=== PATIENT | male | born 1980 | race Caucasian/White ===

== ENCOUNTER 2017-12-01 22:38 | Inpatient (IN) | payer OTHER, MEDICAID ==
[~2017-12-01] VITALS: Ht 177.8 cm; Wt 62.5 kg
[2017-12-01 22:48] VITALS: BP 84/53
[2017-12-01] MEDS ORDERED: NOREPINEPHRINE 8 MG/250ML KIT 250 ML IV ONE (22:54)
[2017-12-01] MEDS ORDERED: SODIUM BICARBONATE 8.4% INJ 50ML SYRINGE ONE (23:07)
[2017-12-01] MEDS ORDERED: MIDAZOLAM DRIP 50 mg/50mL 50 ML IV ONE (23:14)
[2017-12-01 23:24] LABS: Basophils # (auto) 0 uL; Basophils % (auto) 0.6 % (0.0-2.0); Eosinophils # (auto) 0 uL; Eosinophils % (auto) 0.3 % (0.0-7.0); Hematocrit 46.2 % (41.0-53.0); Hemoglobin 16.1 g/dL (13.5-17.5); Lymphocytes # (auto) 1.6 uL; Mean Corpuscular Hemoglobin 33.8 pg (28.0-32.0); Mean Corpuscular Hgb Conc. 34.8 g/dL (32.0-36.0); Monocytes # (auto) 0.3 uL; Monocytes % (auto) 3.9 % (0.0-12.0); Neutrophils # (auto) 4.7 uL; Neutrophils % (auto) 71.2 % (37.0-80.0); Nucleated Red Blood Cells % 0.2 %; Platelet Count (auto) 166 10^3/uL (140-450); Red Blood Cells 4.76 10^6/uL (4.5-5.90); Red Cell Distribution Width 14.2 % (11.8-14.3); White Blood Cell 6.6 10^3/uL (4.4-10.8)
[2017-12-01 23:30] VITALS: BP 84/53
[2017-12-01 23:36] LABS: Urine Bacteria FEW /hpf (None Seen); Urine Blood Negative /uL (Negative); Urine Specific Gravity 1.007 (1.001-1.035); Urine Sperm PRESENT /hpf (None Seen); Urine WBC 1 /hpf (0 - 3)
[2017-12-01 23:39] LABS: Alanine Aminotransferase 116 U/L (16-61); Albumin 3.4 g/dL (3.4-5.0); Anion Gap 21 (5-15); Aspartate Aminotransferase 332 U/L (15-37); BUN/Creatinine Ratio 5.3; Blood Alcohol < 3.0 mg/dL (0-5); Blood Urea Nitrogen 9 mg/dL (7-18); Calcium 8.3 mg/dL (8.5-10.1); Carbon Dioxide 21 mmol/L (21-32); Chloride 90 mmol/L (98-107); GFR African American 59 mL/min; GFR Non-African American 49 mL/min; Glucose 350 mg/dL (74-106); Magnesium 2.1 mg/dL (1.6-2.6); Salicylate < 1.7 mg/dL (2.8-20.0); Sodium 132 mmol/L (136-145)
[2017-12-01 23:43] LABS: Acetaminophen < 2.0 ug/mL (10-30); Alkaline Phosphatase 95 U/L (45-117); Bilirubin, Total 2.1 mg/dL (0.2-1.0); Potassium 2.5 mmol/L (3.5-5.1); Total Protein 7.7 g/dL (6.4-8.2)
[2017-12-01] MEDS ORDERED: POTASSIUM EFFERVESENT TAB 25 MEQ GT ONE (23:45)
[2017-12-01] MEDS ORDERED: MIDAZOLAM DRIP 50 mg/50mL 50 ML IV SCH (23:48)
[2017-12-01 23:49] LABS: Alcohol, Urine < 3.0 mg/dL (0-5); Amphetamine Screen, Urine NEGATIVE (NEGATIVE); Barbiturate Scree,Urine POSITIVE (NEGATIVE); Benzodiazephine Screen, Urine NEGATIVE (NEGATIVE); Cannabinoid Screen, Urine POSITIVE (NEGATIVE); Cocaine Screen, Urine NEGATIVE (NEGATIVE); Opiate Scree,Urine NEGATIVE (NEGATIVE); Phencyclidine Screen, Urine NEGATIVE (NEGATIVE)
[2017-12-02] VITALS (69 sets, daily range): BP systolic 81–143; BP diastolic 49–85
[2017-12-02] MEDS ORDERED: NOREPINEPHRINE 8 MG/250ML KIT 250 ML IV SCH
[2017-12-02] MEDS ORDERED: SODIUM CHLORIDE 0.9% 2,000 ML IV ONE
[2017-12-02] MEDS ORDERED: SODIUM BICARBONATE 8.4 % INJ 50ML VIAL IV ONE (01:00)
[2017-12-02] MEDS ORDERED: fentaNYL Drip 2500mCg/250mlNS 250 ML IV ONE (01:09)
[2017-12-02] MEDS: fentaNYL Drip 2500mCg/250mlNS 250 ML IV SCH (01:24)
[2017-12-02] MEDS: POTASSIUM CHL 20MEQ/100ML 100 ML IV SCH ×4 (03:33→16:30)
[2017-12-02] MEDS ORDERED: THIAMINE INJ 100 MG, MULTIPLE VITAMIN 10 ML, FOLIC ACID 1 MG, MAGNESIUM SULF SDV 50% 8 ... IV ONE ×5 (04:30)
[2017-12-02] MEDS ORDERED: ACETAMINOPHEN 325 MG TAB PO ONE (06:00)
[2017-12-02] MEDS ORDERED: LORazepam 2MG/ML-1ML VIAL IV ONE (06:00)
[2017-12-02] MEDS ORDERED: ACETAMINOPHEN 325 MG TAB PO PRN (06:45)
[2017-12-02] MEDS ORDERED: MORPHINE SULFATE 4 MG/ML SYR/VIAL IV PRN (06:45)
[2017-12-02] MEDS ORDERED: NITROGLYCERIN 0.4 MG SL TAB SL PRN (06:45)
[2017-12-02] MEDS ORDERED: SODIUM CHLORIDE 0.9% 500 ML IV ONE (06:45)
[2017-12-02] MEDS ORDERED: ONDANSETRON HCL 4 MG/2 ML VIAL IV PRN (06:45)
[2017-12-02] MEDS ORDERED: PROPOFOL 10 MG/ML 20 ML IV ONE (07:30)
[2017-12-02] MEDS ORDERED: LEVETIRACETAM INJ 1,000 MG in D5W 5% 100 ML IV ONE (07:30)
[2017-12-02] MEDS ORDERED: PROPOFOL 100 ML IV ONE (07:35)
[2017-12-02] MEDS ORDERED: SODIUM CHLORIDE 0.9% 1,000 ML IV SCH (07:45)
[2017-12-02] MEDS: PROPOFOL 100 ML IV SCH ×2 (07:47→22:13)
[2017-12-02] MEDS: MIDAZOLAM DRIP 50 mg/50mL 50 ML IV SCH ×4 (07:47→22:14)
[2017-12-02] MEDS ORDERED: SPIRONOLACTONE 25 MG TAB PO ONE (09:15)
[2017-12-02] MEDS ORDERED: PANTOPRAZOLE 40 MG/10 ML VIAL IV SCH (10:00)
[2017-12-02] MEDS ORDERED: ENOXAPARIN SOD 40 MG/0.4 ML SYRINGE SC SCH (10:00)
[2017-12-02] MEDS ORDERED: ASPirin 81 mg TAB PO SCH (10:00)
[2017-12-02 10:41] LABS: Basophils # (auto) 0.1 uL; Basophils % (auto) 0.8 % (0.0-2.0); Eosinophils # (auto) 0 uL; Eosinophils % (auto) 0.1 % (0.0-7.0); Hemoglobin 13.6 g/dL (13.5-17.5); Lymphocytes # (auto) 0.5 uL; Lymphocytes % (auto) 4.2 % (10.0-50.0); Mean Corpuscular Hemoglobin 33.2 pg (28.0-32.0); Mean Corpuscular Volume 97.6 fL (80.0-100.0); Monocytes # (auto) 0.5 uL; Monocytes % (auto) 4.7 % (0.0-12.0); Neutrophils % (auto) 90.2 % (37.0-80.0); Nucleated Red Blood Cells % 0.1 %; Platelet Count (auto) 118 10^3/uL (140-450); Red Cell Distribution Width 14.3 % (11.8-14.3); White Blood Cell 11.1 10^3/uL (4.4-10.8)
[2017-12-02 10:59] LABS: Anion Gap 11 (5-15); BUN/Creatinine Ratio 7.5; Blood Urea Nitrogen 6 mg/dL (7-18); Calcium 6.5 mg/dL (8.5-10.1); Carbon Dioxide 20 mmol/L (21-32); Chloride 109 mmol/L (98-107); GFR African American 141 mL/min; GFR Non-African American 116 mL/min; Glucose 96 mg/dL (74-106); Lactic Acid w/Reflex 2.4 mmol/L (0.4-2.0); Potassium 3.2 mmol/L (3.5-5.1); Sodium 140 mmol/L (136-145)
[2017-12-02 13:17] LABS: Albumin 2.9 g/dL (3.4-5.0)
[2017-12-02 13:18] LABS: Alanine Aminotransferase 88 U/L (16-61); Aspartate Aminotransferase 236 U/L (15-37); Bilirubin, Total 1.1 mg/dL (0.2-1.0); Total Protein 6.4 g/dL (6.4-8.2)
[2017-12-02] MEDS: SODIUM CHLORIDE 0.9% 1,000 ML IV SCH ×2 (13:30→17:55)
[2017-12-02 14:55] LABS: Alkaline Phosphatase 63 U/L (45-117)
[2017-12-02] MEDS ORDERED: POTASSIUM CHL 20MEQ/100ML 100 ML IV ONE (16:15)
[2017-12-02] MEDS ORDERED: VANCOMYCIN PER PHARMACY 0 MG IV SCH (17:30)
[2017-12-02] MEDS ORDERED: VANCOMYCIN 1GM/250ML 250 ML IV ONE (17:30)
[2017-12-02 19:34] LABS: Lactic Acid w/Reflex 2.2 mmol/L (0.4-2.0)
[2017-12-02] MEDS: PHENYLEPHRINE INJ 20 MG in SODIUM CHL 0.9% 250 ML IV SCH (19:50)
[2017-12-02] MEDS ORDERED: PHENYLEPHRINE IV 250 ML IV ONE (19:55)
[2017-12-02] MEDS ORDERED: SODIUM CHLORIDE 0.9% 1,000 ML IV ONE (20:00)
[2017-12-02] MEDS: PANTOPRAZOLE 40 MG/10 ML VIAL IV SCH (22:13)
[2017-12-02] MEDS: SODIUM CHL 0.9% IV SCH (22:13)
[2017-12-02] MEDS: CEFEPIME HYDROCHLORIDE IV SCH (22:13)
[2017-12-03] VITALS (100 sets, daily range): BP systolic 88–154; BP diastolic 45–102
[2017-12-03] MEDS: MIDAZOLAM DRIP 50 mg/50mL 50 ML IV SCH ×3 (01:28→16:31)
[2017-12-03] MEDS: SODIUM CHLORIDE 0.9% 1,000 ML IV SCH ×3 (01:30→17:30)
[2017-12-03 04:09] LABS: Basophils # (auto) 0 uL; Basophils % (auto) 0.3 % (0.0-2.0); Eosinophils # (auto) 0 uL; Eosinophils % (auto) 0.2 % (0.0-7.0); Hematocrit 45.2 % (41.0-53.0); Hemoglobin 15.3 g/dL (13.5-17.5); Lymphocytes # (auto) 1.1 uL; Lymphocytes % (auto) 8.1 % (10.0-50.0); Mean Corpuscular Hemoglobin 33.2 pg (28.0-32.0); Mean Corpuscular Hgb Conc. 33.9 g/dL (32.0-36.0); Mean Corpuscular Volume 98.1 fL (80.0-100.0); Monocytes # (auto) 0.6 uL; Monocytes % (auto) 4.3 % (0.0-12.0); Neutrophils # (auto) 11.4 uL; Neutrophils % (auto) 87.1 % (37.0-80.0); Platelet Count (auto) 77 10^3/uL (140-450); Red Blood Cells 4.61 10^6/uL (4.5-5.90); Red Cell Distribution Width 14.4 % (11.8-14.3); White Blood Cell 13.1 10^3/uL (4.4-10.8)
[2017-12-03] MEDS: PHENYLEPHRINE INJ 20 MG in SODIUM CHL 0.9% 250 ML IV SCH ×3 (04:10→16:32)
[2017-12-03 04:32] LABS: Potassium 3.1 mmol/L (3.5-5.1)
[2017-12-03 04:35] LABS: BUN/Creatinine Ratio 5.3
[2017-12-03 04:36] LABS: Albumin 2.2 g/dL (3.4-5.0); Calcium 6.7 mg/dL (8.5-10.1); Total Protein 5.7 g/dL (6.4-8.2)
[2017-12-03] MEDS: fentaNYL Drip 2500mCg/250mlNS 250 ML IV SCH ×2 (05:23→16:31)
[2017-12-03] MEDS: PROPOFOL 100 ML IV SCH ×2 (05:23→22:33)
[2017-12-03] MEDS: VANCOMYCIN 1,250 MG in D5W 5% 250 ML IV SCH ×2 (05:48→18:18)
[2017-12-03] MEDS ORDERED: ACETAMINOPHEN 650 mg PER 20 mL UD ONE (08:03)
[2017-12-03] MEDS: ACETAMINOPHEN 650 mg PER 20 mL UD GT PRN ×3 (08:24→23:08)
[2017-12-03] MEDS: CEFEPIME HYDROCHLORIDE IV SCH ×2 (10:46→22:00)
[2017-12-03] MEDS: SODIUM CHL 0.9% IV SCH ×2 (10:46→22:00)
[2017-12-03] MEDS: PANTOPRAZOLE 40 MG/10 ML VIAL IV SCH ×2 (10:46→22:00)
[2017-12-03] MEDS: THIAMINE INJ 100 MG, MULTIPLE VITAMIN 10 ML, FOLIC ACID 1 MG, MAGNESIUM SULF SDV 50% 8 ... IV SCH ×5 (14:00)
[2017-12-03] MEDS: POTASSIUM CHL 20MEQ/100ML 100 ML IV SCH ×2 (14:58→16:40)
[2017-12-03 15:00] LABS: INR 1.2 (0.9-1.15); Partial Thromboplastin Time 34.7 sec (23.78-33.04); Prothrombin Time 12.7 sec (9.27-12.13)
[2017-12-04] VITALS (105 sets, daily range): BP systolic 108–146; BP diastolic 40–81
[2017-12-04] MEDS: SODIUM CHLORIDE 0.9% 1,000 ML IV SCH ×3 (01:30→17:30)
[2017-12-04 03:50] LABS: Basophils # (auto) 0 uL; Basophils % (auto) 0.3 % (0.0-2.0); Eosinophils # (auto) 0.1 uL; Eosinophils % (auto) 0.6 % (0.0-7.0); Hematocrit 43.3 % (41.0-53.0); Hemoglobin 14.8 g/dL (13.5-17.5); Lymphocytes % (auto) 6.6 % (10.0-50.0); Mean Corpuscular Hemoglobin 33.7 pg (28.0-32.0); Mean Corpuscular Hgb Conc. 34.3 g/dL (32.0-36.0); Mean Corpuscular Volume 98.2 fL (80.0-100.0); Monocytes # (auto) 0.9 uL; Monocytes % (auto) 6.2 % (0.0-12.0); Neutrophils # (auto) 13.1 uL; Neutrophils % (auto) 86.3 % (37.0-80.0); Platelet Count (auto) 92 10^3/uL (140-450); Red Blood Cells 4.41 10^6/uL (4.5-5.90); Red Cell Distribution Width 13.8 % (11.8-14.3); White Blood Cell 15.1 10^3/uL (4.4-10.8)
[2017-12-04 04:11] LABS: Alanine Aminotransferase 45 U/L (16-61); Albumin 2.1 g/dL (3.4-5.0); Anion Gap 10 (5-15); Aspartate Aminotransferase 103 U/L (15-37); BUN/Creatinine Ratio 4.2; Blood Urea Nitrogen 3 mg/dL (7-18); Calcium 7.4 mg/dL (8.5-10.1); Carbon Dioxide 24 mmol/L (21-32); Chloride 104 mmol/L (98-107); GFR African American 161 mL/min; GFR Non-African American 133 mL/min; Glucose 78 mg/dL (74-106); Potassium 3.8 mmol/L (3.5-5.1); Sodium 138 mmol/L (136-145)
[2017-12-04 04:13] LABS: Alkaline Phosphatase 63 U/L (45-117); Bilirubin, Total 0.7 mg/dL (0.2-1.0); Total Protein 6.2 g/dL (6.4-8.2)
[2017-12-04] MEDS: PHENYLEPHRINE INJ 20 MG in SODIUM CHL 0.9% 250 ML IV SCH ×2 (04:34→07:16)
[2017-12-04] MEDS: fentaNYL Drip 2500mCg/250mlNS 250 ML IV SCH ×2 (04:46→18:46)
[2017-12-04] MEDS: PROPOFOL 100 ML IV SCH ×3 (04:46→21:54)
[2017-12-04] MEDS: VANCOMYCIN 1,250 MG in D5W 5% 250 ML IV SCH ×2 (04:46→18:45)
[2017-12-04] MEDS: ACETAMINOPHEN 650 mg PER 20 mL UD GT PRN ×2 (04:47→13:59)
[2017-12-04] MEDS: MIDAZOLAM DRIP 50 mg/50mL 50 ML IV SCH (06:40)
[2017-12-04] MEDS: PANTOPRAZOLE 40 MG/10 ML VIAL IV SCH ×2 (11:55→21:54)
[2017-12-04] MEDS: CEFEPIME HYDROCHLORIDE IV SCH ×2 (11:55→21:55)
[2017-12-04] MEDS: SODIUM CHL 0.9% IV SCH ×2 (11:55→21:55)
[2017-12-04] MEDS: THIAMINE INJ 100 MG, MULTIPLE VITAMIN 10 ML, FOLIC ACID 1 MG, MAGNESIUM SULF SDV 50% 8 ... IV SCH ×5 (14:30)
[2017-12-05] VITALS (109 sets, daily range): BP systolic 90–155; BP diastolic 43–174
[2017-12-05] MEDS: VANCOMYCIN 1,250 MG in D5W 5% 250 ML IV SCH ×3 (01:28→18:25)
[2017-12-05] MEDS: PROPOFOL 100 ML IV SCH ×2 (01:29→09:51)
[2017-12-05] MEDS: fentaNYL Drip 2500mCg/250mlNS 250 ML IV SCH ×2 (03:48→09:51)
[2017-12-05 04:00] LABS: Basophils # (auto) 0 uL; Eosinophils # (auto) 0.1 uL; Hemoglobin 12.8 g/dL (13.5-17.5); Mean Corpuscular Hgb Conc. 34.9 g/dL (32.0-36.0); Monocytes # (auto) 0.7 uL; Neutrophils # (auto) 7.3 uL; Neutrophils % (auto) 84.4 % (37.0-80.0); White Blood Cell 8.7 10^3/uL (4.4-10.8)
[2017-12-05 04:06] LABS: Basophils % (auto) 0.1 % (0.0-2.0); Eosinophils % (auto) 0.9 % (0.0-7.0); Hematocrit 36.7 % (41.0-53.0); Lymphocytes # (auto) 0.5 uL; Lymphocytes % (auto) 6.3 % (10.0-50.0); Mean Corpuscular Volume 97.6 fL (80.0-100.0); Monocytes % (auto) 8.3 % (0.0-12.0); Nucleated Red Blood Cells % 0.1 %; Red Blood Cells 3.76 10^6/uL (4.5-5.90); Red Cell Distribution Width 13.8 % (11.8-14.3)
[2017-12-05 04:09] LABS: Platelet Count (auto) 83 10^3/uL (140-450)
[2017-12-05 04:25] LABS: Potassium 3.2 mmol/L (3.5-5.1)
[2017-12-05 04:29] LABS: BUN/Creatinine Ratio 5.7; Calcium 7.4 mg/dL (8.5-10.1)
[2017-12-05] MEDS: CEFEPIME HYDROCHLORIDE IV SCH ×2 (09:49→21:59)
[2017-12-05] MEDS: SODIUM CHL 0.9% IV SCH ×2 (09:49→21:59)
[2017-12-05] MEDS: MIDAZOLAM DRIP 50 mg/50mL 50 ML IV SCH (09:49)
[2017-12-05] MEDS: PHENYLEPHRINE INJ 20 MG in SODIUM CHL 0.9% 250 ML IV SCH ×4 (09:49→22:50)
[2017-12-05] MEDS: PANTOPRAZOLE 40 MG/10 ML VIAL IV SCH ×2 (09:52→21:58)
[2017-12-05] MEDS: ACETAMINOPHEN 650 mg PER 20 mL UD GT PRN ×2 (09:54→18:45)
[2017-12-05] MEDS: THIAMINE INJ 100 MG, MULTIPLE VITAMIN 10 ML, FOLIC ACID 1 MG, MAGNESIUM SULF SDV 50% 8 ... IV SCH ×5 (12:30)
[2017-12-05] MEDS ORDERED: LIDOCAINE 1% (LOCAL ANESTH.) PF 5ml SDV ID ONE (16:00)
[2017-12-05] MEDS: SODIUM CHLORIDE 0.9% 1,000 ML IV SCH ×3 (16:29→17:30)
[2017-12-05] MEDS: POTASSIUM CHL 20MEQ/100ML 100 ML IV SCH ×2 (20:41→22:47)
[2017-12-05] MEDS: SODIUM CHLOR 0.9% PF (SALINE LOCK) 10ML VIAL/SYR IV SCH (21:58)
[2017-12-06] VITALS (99 sets, daily range): BP systolic 92–145; BP diastolic 38–105
[2017-12-06] MEDS: SODIUM CHLORIDE 0.9% 1,000 ML IV SCH ×3 (01:30→17:20)
[2017-12-06] MEDS: VANCOMYCIN 1,250 MG in D5W 5% 250 ML IV SCH ×3 (02:02→18:11)
[2017-12-06] MEDS: PROPOFOL 100 ML IV SCH ×4 (06:29→23:55)
[2017-12-06] MEDS: MIDAZOLAM DRIP 50 mg/50mL 50 ML IV SCH ×5 (06:40→20:00)
[2017-12-06] MEDS: PHENYLEPHRINE INJ 20 MG in SODIUM CHL 0.9% 250 ML IV SCH ×3 (06:54→23:50)
[2017-12-06] MEDS: LORazepam 2MG/ML-1ML VIAL IV PRN ×4 (07:52→17:44)
[2017-12-06] MEDS: fentaNYL Drip 2500mCg/250mlNS 250 ML IV SCH (08:14)
[2017-12-06 09:04] LABS: Hematocrit 32.1 % (41.0-53.0); Hemoglobin 11.3 g/dL (13.5-17.5); Mean Corpuscular Hemoglobin 33.6 pg (28.0-32.0); Mean Corpuscular Hgb Conc. 35.1 g/dL (32.0-36.0); Mean Corpuscular Volume 95.9 fL (80.0-100.0); Platelet Count (auto) 107 10^3/uL (140-450); Red Blood Cells 3.35 10^6/uL (4.5-5.90); Red Cell Distribution Width 14.2 % (11.8-14.3); White Blood Cell 5.5 10^3/uL (4.4-10.8)
[2017-12-06 09:07] LABS: Basophils % (manual) 0 (0.0-2.0); Blast Cells 0; Myelocytes % 0; Promyelocytes % 0; Reactive Lymphocytes 0
[2017-12-06 09:09] LABS: Alanine Aminotransferase 27 U/L (16-61); Albumin 1.7 g/dL (3.4-5.0); Anion Gap 9 (5-15); Blood Urea Nitrogen < 1 mg/dL (7-18); Calcium 7.6 mg/dL (8.5-10.1); Carbon Dioxide 28 mmol/L (21-32); Chloride 97 mmol/L (98-107); Glucose 114 mg/dL (74-106); Sodium 134 mmol/L (136-145)
[2017-12-06 09:13] LABS: Alkaline Phosphatase 50 U/L (45-117); Aspartate Aminotransferase 57 U/L (15-37); BUN/Creatinine Ratio 2.2; Bilirubin, Total 0.6 mg/dL (0.2-1.0); GFR African American 266 mL/min; GFR Non-African American 220 mL/min; Total Protein 5.8 g/dL (6.4-8.2)
[2017-12-06 09:15] LABS: Potassium 2.5 mmol/L (3.5-5.1)
[2017-12-06 10:03] LABS: Band Neutrophils % (manual) 6; Eosinophils % (manual) 3 (0-7); Lymphocytes % (manual) 7 (10.0-50.0); Metamyelocytes % 2; Monocytes % (manual) 12 (0-12)
[2017-12-06] MEDS: CEFEPIME HYDROCHLORIDE IV SCH ×2 (10:10→21:44)
[2017-12-06] MEDS: SODIUM CHL 0.9% IV SCH ×2 (10:10→21:44)
[2017-12-06] MEDS: SODIUM CHLOR 0.9% PF (SALINE LOCK) 10ML VIAL/SYR IV SCH ×2 (10:11→21:44)
[2017-12-06] MEDS: PANTOPRAZOLE 40 MG/10 ML VIAL IV SCH ×2 (10:11→21:44)
[2017-12-06] MEDS: ACETAMINOPHEN 650 mg PER 20 mL UD GT PRN ×2 (13:39→20:49)
[2017-12-06] MEDS ORDERED: POTASSIUM CHL 20MEQ/100ML 300 ML IV ONE (16:13)
[2017-12-06] MEDS: POTASSIUM CHL 20MEQ/100ML 100 ML IV SCH ×3 (16:15→18:31)
[2017-12-06] MEDS: THIAMINE INJ 100 MG, MULTIPLE VITAMIN 10 ML, FOLIC ACID 1 MG, MAGNESIUM SULF SDV 50% 8 ... IV SCH ×5 (17:23)
[2017-12-06] MEDS ORDERED: MEPERIDINE HCL (25 MG/ML) 1ML VIAL IV PRN (21:00)
[2017-12-06] MEDS ORDERED: MEPERIDINE HCL (25 MG/ML) 1ML VIAL ONE (21:00)
[2017-12-07] VITALS (104 sets, daily range): BP systolic 85–130; BP diastolic 38–76
[2017-12-07] MEDS: MIDAZOLAM DRIP 50 mg/50mL 50 ML IV SCH ×6 (00:11→22:30)
[2017-12-07] MEDS: VANCOMYCIN 1,250 MG in D5W 5% 250 ML IV SCH ×2 (02:00→10:48)
[2017-12-07] MEDS: SODIUM CHLORIDE 0.9% 1,000 ML IV SCH ×3 (02:30→13:01)
[2017-12-07] MEDS: fentaNYL Drip 2500mCg/250mlNS 250 ML IV SCH ×2 (02:31→16:54)
[2017-12-07 04:21] LABS: Basophils # (auto) 0 uL; Eosinophils # (auto) 0.1 uL; Hematocrit 31.8 % (41.0-53.0); Lymphocytes # (auto) 0.4 uL; Red Blood Cells 3.33 10^6/uL (4.5-5.90)
[2017-12-07 04:24] LABS: Basophils % (auto) 0.4 % (0.0-2.0); Eosinophils % (auto) 1.1 % (0.0-7.0); Hemoglobin 11.5 g/dL (13.5-17.5); Lymphocytes % (auto) 5.8 % (10.0-50.0); Mean Corpuscular Hemoglobin 34.4 pg (28.0-32.0); Mean Corpuscular Hgb Conc. 36.1 g/dL (32.0-36.0); Mean Corpuscular Volume 95.3 fL (80.0-100.0); Neutrophils # (auto) 4.8 uL; Neutrophils % (auto) 76.7 % (37.0-80.0); Platelet Count (auto) 135 10^3/uL (140-450); Red Cell Distribution Width 14.4 % (11.8-14.3); White Blood Cell 6.3 10^3/uL (4.4-10.8)
[2017-12-07 04:36] LABS: Albumin 1.5 g/dL (3.4-5.0); Calcium 7.5 mg/dL (8.5-10.1); Magnesium 1.9 mg/dL (1.6-2.6)
[2017-12-07 04:43] LABS: BUN/Creatinine Ratio 5.7; Bilirubin, Total 0.7 mg/dL (0.2-1.0); Total Protein 5.2 g/dL (6.4-8.2)
[2017-12-07 04:47] LABS: Potassium 2.7 mmol/L (3.5-5.1)
[2017-12-07] MEDS ORDERED: POTASSIUM CHL 20MEQ/100ML 100 ML IV ONE (05:41)
[2017-12-07] MEDS: POTASSIUM CHL 20MEQ/100ML 100 ML IV SCH ×6 (05:43→23:30)
[2017-12-07] MEDS: MEPERIDINE HCL (25 MG/ML) 1ML VIAL IV PRN ×3 (06:37→22:48)
[2017-12-07] MEDS: PHENYLEPHRINE INJ 20 MG in SODIUM CHL 0.9% 250 ML IV SCH ×2 (08:10→16:30)
[2017-12-07] MEDS: PANTOPRAZOLE 40 MG/10 ML VIAL IV SCH ×2 (10:00→21:53)
[2017-12-07] MEDS: SODIUM CHLOR 0.9% PF (SALINE LOCK) 10ML VIAL/SYR IV SCH ×2 (10:32→21:53)
[2017-12-07] MEDS: PROPOFOL 100 ML IV SCH ×2 (10:48→21:53)
[2017-12-07] MEDS: SODIUM CHL 0.9% IV SCH ×2 (12:12→21:52)
[2017-12-07] MEDS: CEFEPIME HYDROCHLORIDE IV SCH ×2 (12:12→21:52)
[2017-12-07] MEDS: THIAMINE INJ 100 MG, MULTIPLE VITAMIN 10 ML, FOLIC ACID 1 MG, MAGNESIUM SULF SDV 50% 8 ... IV SCH ×5 (13:23)
[2017-12-07] MEDS: ACETAMINOPHEN 650 mg PER 20 mL UD GT PRN (13:59)
[2017-12-07] MEDS: DOXYCYCLINE 100MG/250ML 250 ML IV SCH (18:00)
[2017-12-08] VITALS (100 sets, daily range): BP systolic 80–146; BP diastolic 29–97
[2017-12-08] MEDS: PHENYLEPHRINE INJ 20 MG in SODIUM CHL 0.9% 250 ML IV SCH ×3 (00:50→13:09)
[2017-12-08] MEDS: SODIUM CHLORIDE 0.9% 1,000 ML IV SCH ×3 (01:43→18:01)
[2017-12-08] MEDS: MEPERIDINE HCL (25 MG/ML) 1ML VIAL IV PRN ×4 (02:47→21:56)
[2017-12-08] MEDS ORDERED: POTASSIUM CHL 20MEQ/100ML 100 ML IV ONE (03:57)
[2017-12-08] MEDS: DOXYCYCLINE 100MG/250ML 250 ML IV SCH ×2 (05:17→17:09)
[2017-12-08] MEDS: MIDAZOLAM DRIP 50 mg/50mL 50 ML IV SCH ×4 (06:20→20:00)
[2017-12-08 07:30] LABS: BUN/Creatinine Ratio 6.3; Calcium 8.1 mg/dL (8.5-10.1); Potassium 3.2 mmol/L (3.5-5.1)
[2017-12-08] MEDS: fentaNYL Drip 2500mCg/250mlNS 250 ML IV SCH ×2 (07:50→20:00)
[2017-12-08] MEDS: ACETAMINOPHEN 650 mg PER 20 mL UD GT PRN ×2 (09:35→18:02)
[2017-12-08] MEDS: LORazepam 2MG/ML-1ML VIAL IV PRN ×4 (09:35→18:23)
[2017-12-08] MEDS: SODIUM CHLOR 0.9% PF (SALINE LOCK) 10ML VIAL/SYR IV SCH ×2 (09:41→21:57)
[2017-12-08] MEDS: PANTOPRAZOLE 40 MG/10 ML VIAL IV SCH ×2 (09:41→21:57)
[2017-12-08] MEDS: CEFEPIME HYDROCHLORIDE IV SCH ×2 (09:42→21:55)
[2017-12-08] MEDS: ENOXAPARIN SOD 40 MG/0.4 ML SYRINGE SC SCH (09:42)
[2017-12-08] MEDS: SODIUM CHL 0.9% IV SCH ×2 (09:42→21:55)
[2017-12-08] MEDS: POTASSIUM CHL 20MEQ/100ML 100 ML IV SCH ×2 (10:51→12:59)
[2017-12-08] MEDS ORDERED: PHENYLEPHRINE IV 250 ML IV ONE (13:00)
[2017-12-08] MEDS: THIAMINE INJ 100 MG, MULTIPLE VITAMIN 10 ML, FOLIC ACID 1 MG, MAGNESIUM SULF SDV 50% 8 ... IV SCH ×5 (13:44)
[2017-12-08] MEDS ORDERED: MORPHINE SULFATE 4 MG/ML SYR/VIAL IV PRN (19:15)
[2017-12-08] MEDS: PROPOFOL 100 ML IV SCH (20:15)
[2017-12-09] VITALS (107 sets, daily range): BP systolic 93–156; BP diastolic 41–111
[2017-12-09] MEDS: MIDAZOLAM DRIP 50 mg/50mL 50 ML IV SCH ×6 (00:19→23:16)
[2017-12-09] MEDS: PROPOFOL 100 ML IV SCH ×5 (00:19→21:06)
[2017-12-09] MEDS: PHENYLEPHRINE INJ 20 MG in SODIUM CHL 0.9% 250 ML IV SCH ×3 (00:19→18:30)
[2017-12-09] MEDS: SODIUM CHLORIDE 0.9% 1,000 ML IV SCH ×3 (00:19→17:07)
[2017-12-09 03:41] LABS: Hematocrit 31.8 % (41.0-53.0); Hemoglobin 10.8 g/dL (13.5-17.5); Mean Corpuscular Hemoglobin 32.6 pg (28.0-32.0); Mean Corpuscular Volume 95.7 fL (80.0-100.0); Platelet Count (auto) 334 10^3/uL (140-450); Red Blood Cells 3.33 10^6/uL (4.5-5.90); White Blood Cell 11.2 10^3/uL (4.4-10.8)
[2017-12-09 03:44] LABS: Basophils % (manual) 0 (0.0-2.0); Blast Cells 0; Eosinophils % (manual) 0 (0-7); Metamyelocytes % 0; Myelocytes % 0; Promyelocytes % 0; Reactive Lymphocytes 0
[2017-12-09 04:02] LABS: Calcium 7.5 mg/dL (8.5-10.1); Magnesium 1.9 mg/dL (1.6-2.6)
[2017-12-09 04:05] LABS: BUN/Creatinine Ratio 10.3
[2017-12-09 05:17] LABS: Potassium 2.9 mmol/L (3.5-5.1)
[2017-12-09] MEDS: DOXYCYCLINE 100MG/250ML 250 ML IV SCH ×3 (05:19→20:30)
[2017-12-09] MEDS ORDERED: POTASSIUM EFFERVESENT TAB 25 MEQ GT ONE (06:00)
[2017-12-09 06:03] LABS: Band Neutrophils % (manual) 6; Lymphocytes % (manual) 3 (10.0-50.0); Monocytes % (manual) 3 (0-12)
[2017-12-09] MEDS: POTASSIUM CHL 20MEQ/100ML 100 ML IV SCH ×2 (07:01→09:03)
[2017-12-09] MEDS: fentaNYL Drip 2500mCg/250mlNS 250 ML IV SCH ×2 (08:56→21:21)
[2017-12-09] MEDS: SODIUM CHL 0.9% IV SCH ×2 (11:41→22:05)
[2017-12-09] MEDS: CEFEPIME HYDROCHLORIDE IV SCH ×2 (11:41→22:05)
[2017-12-09] MEDS: SODIUM CHLOR 0.9% PF (SALINE LOCK) 10ML VIAL/SYR IV SCH ×2 (11:42→22:05)
[2017-12-09] MEDS: ENOXAPARIN SOD 40 MG/0.4 ML SYRINGE SC SCH (11:42)
[2017-12-09] MEDS: PANTOPRAZOLE 40 MG/10 ML VIAL IV SCH ×2 (11:50→22:05)
[2017-12-09] MEDS: THIAMINE INJ 100 MG, MULTIPLE VITAMIN 10 ML, FOLIC ACID 1 MG, MAGNESIUM SULF SDV 50% 8 ... IV SCH ×5 (11:51)
[2017-12-09] MEDS: MEPERIDINE HCL (25 MG/ML) 1ML VIAL IV PRN (21:15)
[2017-12-09] MEDS: LORazepam 2MG/ML-1ML VIAL IV PRN (23:18)
[2017-12-09] MEDS: METOPROLOL TARTRATE 1MG/1ML-5ML VIAL IV PRN (23:43)
[2017-12-10] VITALS (108 sets, daily range): BP systolic 102–156; BP diastolic 54–113
[2017-12-10] MEDS: PROPOFOL 100 ML IV SCH ×4 (00:57→21:50)
[2017-12-10] MEDS: ACETAMINOPHEN 650 mg PER 20 mL UD GT PRN (01:12)
[2017-12-10] MEDS: PHENYLEPHRINE INJ 20 MG in SODIUM CHL 0.9% 250 ML IV SCH ×3 (02:50→19:30)
[2017-12-10] MEDS: MIDAZOLAM DRIP 50 mg/50mL 50 ML IV SCH ×5 (03:49→21:30)
[2017-12-10 06:01] LABS: Hematocrit 33.3 % (41.0-53.0); Hemoglobin 11.7 g/dL (13.5-17.5); Mean Corpuscular Hemoglobin 33.5 pg (28.0-32.0); Mean Corpuscular Hgb Conc. 35.2 g/dL (32.0-36.0); Mean Corpuscular Volume 95.3 fL (80.0-100.0); Platelet Count (auto) 409 10^3/uL (140-450); Red Blood Cells 3.49 10^6/uL (4.5-5.90); Red Cell Distribution Width 15.2 % (11.8-14.3); White Blood Cell 11.7 10^3/uL (4.4-10.8)
[2017-12-10 06:05] LABS: Basophils % (manual) 0 (0.0-2.0); Blast Cells 0; Eosinophils % (manual) 0 (0-7); Monocytes % (manual) 0 (0-12); Promyelocytes % 0; Reactive Lymphocytes 0
[2017-12-10 06:17] LABS: Calcium 8.3 mg/dL (8.5-10.1); Magnesium 1.9 mg/dL (1.6-2.6); Potassium 3.7 mmol/L (3.5-5.1)
[2017-12-10 06:19] LABS: BUN/Creatinine Ratio 6.5; Phosphorus 3.3 mg/dL (2.5-4.90)
[2017-12-10 07:03] LABS: Band Neutrophils % (manual) 1; Lymphocytes % (manual) 4 (10.0-50.0); Metamyelocytes % 1; Myelocytes % 2
[2017-12-10] MEDS ORDERED: POTASSIUM PHOSPHATE 22 MEQ in SODIUM CHL 0.9% 100 ML IV ONE (07:45)
[2017-12-10] MEDS: SODIUM CHLORIDE 0.9% 1,000 ML IV SCH ×3 (08:41→17:30)
[2017-12-10] MEDS: MEPERIDINE HCL (25 MG/ML) 1ML VIAL IV PRN ×3 (08:42→20:13)
[2017-12-10] MEDS: CEFEPIME HYDROCHLORIDE IV SCH ×2 (09:51→22:00)
[2017-12-10] MEDS: PANTOPRAZOLE 40 MG/10 ML VIAL IV SCH ×2 (09:51→22:00)
[2017-12-10] MEDS: SODIUM CHL 0.9% IV SCH ×2 (09:51→22:00)
[2017-12-10] MEDS: ENOXAPARIN SOD 40 MG/0.4 ML SYRINGE SC SCH (09:52)
[2017-12-10] MEDS: SODIUM CHLOR 0.9% PF (SALINE LOCK) 10ML VIAL/SYR IV SCH ×2 (09:52→22:00)
[2017-12-10] MEDS: METOPROLOL TARTRATE 1MG/1ML-5ML VIAL IV PRN ×2 (11:33→23:24)
[2017-12-10] MEDS: fentaNYL Drip 2500mCg/250mlNS 250 ML IV SCH (11:39)
[2017-12-10] MEDS: DOXYCYCLINE 100MG/250ML 250 ML IV SCH (17:18)
[2017-12-10] MEDS: Jevity 1.2 Cal/Fiber 1 Liter GT SCH (17:53)
[2017-12-11] VITALS (104 sets, daily range): BP systolic 110–159; BP diastolic 58–119
[2017-12-11] MEDS: SODIUM CHLORIDE 0.9% 1,000 ML IV SCH ×3 (01:30→13:14)
[2017-12-11] MEDS: fentaNYL Drip 2500mCg/250mlNS 250 ML IV SCH ×2 (01:33→13:51)
[2017-12-11] MEDS: MIDAZOLAM DRIP 50 mg/50mL 50 ML IV SCH ×7 (01:33→22:18)
[2017-12-11] MEDS: PHENYLEPHRINE INJ 20 MG in SODIUM CHL 0.9% 250 ML IV SCH ×3 (03:50→20:30)
[2017-12-11] MEDS: PROPOFOL 100 ML IV SCH ×5 (04:13→22:19)
[2017-12-11] MEDS: METOPROLOL TARTRATE 1MG/1ML-5ML VIAL IV PRN (04:18)
[2017-12-11] MEDS: DOXYCYCLINE 100MG/250ML 250 ML IV SCH ×2 (05:07→17:13)
[2017-12-11 05:09] LABS: Hematocrit 34.8 % (41.0-53.0); Mean Corpuscular Hemoglobin 33.3 pg (28.0-32.0); Mean Corpuscular Hgb Conc. 34.6 g/dL (32.0-36.0); Mean Corpuscular Volume 96.2 fL (80.0-100.0); Red Blood Cells 3.61 10^6/uL (4.5-5.90); Red Cell Distribution Width 15.1 % (11.8-14.3); White Blood Cell 9.9 10^3/uL (4.4-10.8)
[2017-12-11 05:12] LABS: Platelet Count (auto) 485 10^3/uL (140-450)
[2017-12-11 05:13] LABS: Basophils % (manual) 0 (0.0-2.0); Blast Cells 0; Eosinophils % (manual) 0 (0-7); Myelocytes % 0; Promyelocytes % 0; Reactive Lymphocytes 0
[2017-12-11 05:24] LABS: Potassium 3.5 mmol/L (3.5-5.1)
[2017-12-11 05:33] LABS: BUN/Creatinine Ratio 9.1; Calcium 8.3 mg/dL (8.5-10.1); Magnesium 1.8 mg/dL (1.6-2.6)
[2017-12-11 06:38] LABS: Band Neutrophils % (manual) 3; Lymphocytes % (manual) 10 (10.0-50.0); Metamyelocytes % 2; Monocytes % (manual) 8 (0-12)
[2017-12-11] MEDS: MEPERIDINE HCL (25 MG/ML) 1ML VIAL IV PRN ×3 (09:12→18:19)
[2017-12-11] MEDS: LORazepam 2MG/ML-1ML VIAL IV PRN ×3 (09:12→18:19)
[2017-12-11] MEDS: PANTOPRAZOLE 40 MG/10 ML VIAL IV SCH ×2 (10:00→22:17)
[2017-12-11] MEDS: ENOXAPARIN SOD 40 MG/0.4 ML SYRINGE SC SCH (10:00)
[2017-12-11] MEDS: SODIUM CHLOR 0.9% PF (SALINE LOCK) 10ML VIAL/SYR IV SCH ×2 (10:00→22:19)
[2017-12-11] MEDS: CEFEPIME HYDROCHLORIDE IV SCH ×2 (10:00→22:18)
[2017-12-11] MEDS: SODIUM CHL 0.9% IV SCH ×2 (10:00→22:18)
[2017-12-12] VITALS (87 sets, daily range): BP systolic 104–168; BP diastolic 57–103
[2017-12-12] MEDS: fentaNYL Drip 2500mCg/250mlNS 250 ML IV SCH ×2 (01:00→13:20)
[2017-12-12] MEDS: PROPOFOL 100 ML IV SCH ×5 (01:00→20:26)
[2017-12-12] MEDS: SODIUM CHLORIDE 0.9% 1,000 ML IV SCH ×3 (01:30→17:30)
[2017-12-12] MEDS: METOPROLOL TARTRATE 1MG/1ML-5ML VIAL IV PRN ×4 (03:06→22:10)
[2017-12-12] MEDS: MIDAZOLAM DRIP 50 mg/50mL 50 ML IV SCH ×5 (03:07→20:27)
[2017-12-12 04:04] LABS: Mean Corpuscular Volume 97.8 fL (80.0-100.0)
[2017-12-12 04:08] LABS: Hematocrit 25.9 % (41.0-53.0); Hemoglobin 9.6 g/dL (13.5-17.5); Mean Corpuscular Hemoglobin 36.4 pg (28.0-32.0); Mean Corpuscular Hgb Conc. 37.2 g/dL (32.0-36.0); Red Blood Cells 2.65 10^6/uL (4.5-5.90); Red Cell Distribution Width 15.1 % (11.8-14.3); White Blood Cell 8.3 10^3/uL (4.4-10.8)
[2017-12-12 04:11] LABS: Basophils % (manual) 0 (0.0-2.0); Blast Cells 0; Metamyelocytes % 0; Myelocytes % 0; Platelet Count (auto) 305 10^3/uL (140-450); Promyelocytes % 0; Reactive Lymphocytes 0
[2017-12-12 04:26] LABS: Band Neutrophils % (manual) 4; Eosinophils % (manual) 1 (0-7); Lymphocytes % (manual) 6 (10.0-50.0); Monocytes % (manual) 6 (0-12)
[2017-12-12] MEDS: Jevity 1.2 Cal/Fiber 1 Liter GT SCH ×2 (04:48→20:28)
[2017-12-12] MEDS: PHENYLEPHRINE INJ 20 MG in SODIUM CHL 0.9% 250 ML IV SCH ×2 (04:50→13:10)
[2017-12-12] MEDS: DOXYCYCLINE 100MG/250ML 250 ML IV SCH ×2 (04:54→17:30)
[2017-12-12 05:56] LABS: Albumin 1.5 g/dL (3.4-5.0); Anion Gap 6 (5-15); Aspartate Aminotransferase 56 U/L (15-37); Blood Urea Nitrogen 4 mg/dL (7-18); Calcium 7.5 mg/dL (8.5-10.1); Carbon Dioxide 31 mmol/L (21-32); Chloride 100 mmol/L (98-107); GFR African American 313 mL/min; GFR Non-African American 259 mL/min; Glucose 176 mg/dL (74-106); Sodium 137 mmol/L (136-145)
[2017-12-12 06:00] LABS: Alanine Aminotransferase 19 U/L (16-61); Alkaline Phosphatase 71 U/L (45-117); Bilirubin, Total 0.3 mg/dL (0.2-1.0); Total Protein 5.8 g/dL (6.4-8.2)
[2017-12-12] MEDS: SODIUM CHLOR 0.9% PF (SALINE LOCK) 10ML VIAL/SYR IV SCH ×2 (10:00→22:14)
[2017-12-12] MEDS: ENOXAPARIN SOD 40 MG/0.4 ML SYRINGE SC SCH (10:23)
[2017-12-12] MEDS: PANTOPRAZOLE 40 MG/10 ML VIAL IV SCH ×2 (10:24→21:58)
[2017-12-12] MEDS: CEFEPIME HYDROCHLORIDE IV SCH ×2 (10:38→21:58)
[2017-12-12] MEDS: SODIUM CHL 0.9% IV SCH ×2 (10:38→21:58)
[2017-12-12] MEDS: MEPERIDINE HCL (25 MG/ML) 1ML VIAL IV PRN (12:58)
[2017-12-12] MEDS: LORazepam 2MG/ML-1ML VIAL IV PRN (14:16)
[2017-12-12] MEDS ORDERED: MORPHINE SULFATE 4 MG/ML SYR/VIAL IV PRN ×2 (15:15)
[2017-12-12] MEDS ORDERED: MIDAZOLAM DRIP 50 mg/50mL 50 ML IV ONE (15:38)
[2017-12-12] MEDS ORDERED: MIDAZOLAM DRIP 50 mg/50mL 50 ML IV SCH (16:03)
[2017-12-13] VITALS (106 sets, daily range): BP systolic 88–149; BP diastolic 36–112
[2017-12-13] MEDS: MIDAZOLAM DRIP 50 mg/50mL 50 ML IV SCH ×5 (01:24→22:54)
[2017-12-13] MEDS: PROPOFOL 100 ML IV SCH ×4 (01:25→20:39)
[2017-12-13] MEDS: fentaNYL Drip 2500mCg/250mlNS 250 ML IV SCH ×2 (01:30→22:54)
[2017-12-13] MEDS: SODIUM CHLORIDE 0.9% 1,000 ML IV SCH ×3 (01:30→17:30)
[2017-12-13] MEDS: METOPROLOL TARTRATE 1MG/1ML-5ML VIAL IV PRN ×3 (02:30→19:18)
[2017-12-13] MEDS: LORazepam 2MG/ML-1ML VIAL IV PRN (04:09)
[2017-12-13 04:14] LABS: Basophils # (auto) 0.1 uL; Eosinophils # (auto) 0.2 uL; Hemoglobin 10.2 g/dL (13.5-17.5); Lymphocytes # (auto) 0.9 uL; Mean Corpuscular Hemoglobin 35.7 pg (28.0-32.0); Red Blood Cells 2.84 10^6/uL (4.5-5.90); Red Cell Distribution Width 15.4 % (11.8-14.3)
[2017-12-13 04:15] LABS: Basophils % (auto) 0.7 % (0.0-2.0); Hematocrit 27.7 % (41.0-53.0); Lymphocytes % (auto) 9.4 % (10.0-50.0); Mean Corpuscular Hgb Conc. 36.6 g/dL (32.0-36.0); Mean Corpuscular Volume 97.6 fL (80.0-100.0); Monocytes # (auto) 1.2 uL; Monocytes % (auto) 12.5 % (0.0-12.0); Neutrophils % (auto) 75.4 % (37.0-80.0); Nucleated Red Blood Cells % 0.2 %; Platelet Count (auto) 423 10^3/uL (140-450); White Blood Cell 9.3 10^3/uL (4.4-10.8)
[2017-12-13] MEDS: DOXYCYCLINE 100MG/250ML 250 ML IV SCH ×2 (05:07→17:15)
[2017-12-13] MEDS ORDERED: MIDAZOLAM DRIP 50 mg/50mL 50 ML IV SCH (06:40)
[2017-12-13 06:55] LABS: Albumin 1.9 g/dL (3.4-5.0); Calcium 8.7 mg/dL (8.5-10.1)
[2017-12-13 06:58] LABS: BUN/Creatinine Ratio 12.5; Bilirubin, Total 0.3 mg/dL (0.2-1.0); Total Protein 6.8 g/dL (6.4-8.2)
[2017-12-13] MEDS: PHENYLEPHRINE INJ 20 MG in SODIUM CHL 0.9% 250 ML IV SCH ×4 (08:15→16:59)
[2017-12-13] MEDS: CEFEPIME HYDROCHLORIDE IV SCH ×2 (09:55→21:53)
[2017-12-13] MEDS: SODIUM CHL 0.9% IV SCH ×2 (09:55→21:53)
[2017-12-13] MEDS: PANTOPRAZOLE 40 MG/10 ML VIAL IV SCH ×2 (09:56→21:52)
[2017-12-13] MEDS: ENOXAPARIN SOD 40 MG/0.4 ML SYRINGE SC SCH (09:56)
[2017-12-13] MEDS: SODIUM CHLOR 0.9% PF (SALINE LOCK) 10ML VIAL/SYR IV SCH ×2 (10:00→22:00)
[2017-12-13] MEDS: ACETAMINOPHEN 650 mg PER 20 mL UD GT PRN (19:46)
[2017-12-13] MEDS: MEPERIDINE HCL (25 MG/ML) 1ML VIAL IV PRN (19:57)
[2017-12-14] VITALS (91 sets, daily range): BP systolic 86–164; BP diastolic 33–105
[2017-12-14] MEDS: MIDAZOLAM DRIP 50 mg/50mL 50 ML IV SCH ×6 (01:19→20:20)
[2017-12-14] MEDS: SODIUM CHLORIDE 0.9% 1,000 ML IV SCH ×3 (01:30→14:28)
[2017-12-14 04:03] LABS: White Blood Cell 8.3 10^3/uL (4.4-10.8)
[2017-12-14 04:06] LABS: Hematocrit 31.5 % (41.0-53.0); Mean Corpuscular Hgb Conc. 34.4 g/dL (32.0-36.0); Red Cell Distribution Width 15.8 % (11.8-14.3)
[2017-12-14 04:19] LABS: Calcium 8.3 mg/dL (8.5-10.1); Potassium 4.3 mmol/L (3.5-5.1)
[2017-12-14 04:22] LABS: BUN/Creatinine Ratio 18.4
[2017-12-14 04:24] LABS: Platelet Count (auto) 480 10^3/uL (140-450)
[2017-12-14 04:25] LABS: Hemoglobin 10.9 g/dL (13.5-17.5); Red Blood Cells 3.24 10^6/uL (4.5-5.90)
[2017-12-14 04:26] LABS: Basophils % (manual) 0 (0.0-2.0); Blast Cells 0; Myelocytes % 0; Promyelocytes % 0; Reactive Lymphocytes 0
[2017-12-14] MEDS: PROPOFOL 100 ML IV SCH ×4 (04:42→20:19)
[2017-12-14] MEDS: DOXYCYCLINE 100MG/250ML 250 ML IV SCH ×2 (04:43→16:56)
[2017-12-14 04:46] LABS: Band Neutrophils % (manual) 2
[2017-12-14 04:47] LABS: Eosinophils % (manual) 4 (0-7); Lymphocytes % (manual) 20 (10.0-50.0); Metamyelocytes % 2; Monocytes % (manual) 8 (0-12)
[2017-12-14] MEDS: fentaNYL Drip 2500mCg/250mlNS 250 ML IV SCH ×2 (08:57→21:05)
[2017-12-14] MEDS: PHENYLEPHRINE INJ 20 MG in SODIUM CHL 0.9% 250 ML IV SCH ×3 (09:45→23:30)
[2017-12-14] MEDS: PANTOPRAZOLE 40 MG/10 ML VIAL IV SCH ×2 (09:53→21:47)
[2017-12-14] MEDS: ENOXAPARIN SOD 40 MG/0.4 ML SYRINGE SC SCH (09:54)
[2017-12-14] MEDS: SODIUM CHLOR 0.9% PF (SALINE LOCK) 10ML VIAL/SYR IV SCH ×2 (09:54→21:50)
[2017-12-14] MEDS: SODIUM CHL 0.9% IV SCH ×2 (11:13→21:49)
[2017-12-14] MEDS: CEFEPIME HYDROCHLORIDE IV SCH ×2 (11:13→21:49)
[2017-12-14] MEDS: Jevity 1.2 Cal/Fiber 1 Liter GT SCH (11:15)
[2017-12-14] MEDS: MEPERIDINE HCL (25 MG/ML) 1ML VIAL IV PRN ×2 (16:38→23:29)
[2017-12-14] MEDS: METOPROLOL TARTRATE 1MG/1ML-5ML VIAL IV PRN ×2 (17:36→22:26)
[2017-12-14] MEDS: ACETAMINOPHEN 650 mg PER 20 mL UD GT PRN (19:20)
[2017-12-15] VITALS (99 sets, daily range): BP systolic 75–148; BP diastolic 36–101
[2017-12-15] MEDS: SODIUM CHLORIDE 0.9% 1,000 ML IV SCH ×4 (01:45→20:00)
[2017-12-15] MEDS: PROPOFOL 100 ML IV SCH ×4 (02:00→21:55)
[2017-12-15] MEDS: METOPROLOL TARTRATE 1MG/1ML-5ML VIAL IV PRN ×2 (03:10→20:14)
[2017-12-15] MEDS: LORazepam 2MG/ML-1ML VIAL IV PRN ×2 (03:30→20:14)
[2017-12-15 04:59] LABS: Hemoglobin 11.6 g/dL (13.5-17.5); Red Cell Distribution Width 15.3 % (11.8-14.3); White Blood Cell 9.4 10^3/uL (4.4-10.8)
[2017-12-15 05:01] LABS: Hematocrit 33.7 % (41.0-53.0); Mean Corpuscular Hemoglobin 32.7 pg (28.0-32.0); Mean Corpuscular Hgb Conc. 34.4 g/dL (32.0-36.0); Mean Corpuscular Volume 95.3 fL (80.0-100.0); Red Blood Cells 3.54 10^6/uL (4.5-5.90)
[2017-12-15 05:04] LABS: Platelet Count (auto) 486 10^3/uL (140-450)
[2017-12-15 05:05] LABS: Basophils % (manual) 0 (0.0-2.0); Blast Cells 0; Myelocytes % 0; Promyelocytes % 0; Reactive Lymphocytes 0
[2017-12-15] MEDS: DOXYCYCLINE 100MG/250ML 250 ML IV SCH ×2 (05:12→17:16)
[2017-12-15] MEDS: MIDAZOLAM DRIP 50 mg/50mL 50 ML IV SCH ×5 (05:15→22:23)
[2017-12-15 05:17] LABS: Albumin 1.9 g/dL (3.4-5.0); Calcium 8.6 mg/dL (8.5-10.1)
[2017-12-15 05:20] LABS: BUN/Creatinine Ratio 18.2; Bilirubin, Total 0.2 mg/dL (0.2-1.0); Total Protein 6.6 g/dL (6.4-8.2)
[2017-12-15 05:32] LABS: Band Neutrophils % (manual) 2; Eosinophils % (manual) 3 (0-7); Lymphocytes % (manual) 14 (10.0-50.0); Metamyelocytes % 2; Monocytes % (manual) 11 (0-12)
[2017-12-15] MEDS: PHENYLEPHRINE INJ 20 MG in SODIUM CHL 0.9% 250 ML IV SCH ×2 (07:50→16:10)
[2017-12-15] MEDS: MEPERIDINE HCL (25 MG/ML) 1ML VIAL IV PRN ×2 (08:12→17:15)
[2017-12-15] MEDS: fentaNYL Drip 2500mCg/250mlNS 250 ML IV SCH ×2 (08:57→22:24)
[2017-12-15] MEDS: PANTOPRAZOLE 40 MG/10 ML VIAL IV SCH ×2 (10:01→21:53)
[2017-12-15] MEDS: ENOXAPARIN SOD 40 MG/0.4 ML SYRINGE SC SCH (10:01)
[2017-12-15] MEDS: SODIUM CHL 0.9% IV SCH ×2 (10:01→22:08)
[2017-12-15] MEDS: CEFEPIME HYDROCHLORIDE IV SCH ×2 (10:01→22:08)
[2017-12-15] MEDS: SODIUM CHLOR 0.9% PF (SALINE LOCK) 10ML VIAL/SYR IV SCH ×2 (10:02→22:02)
[2017-12-15] MEDS ORDERED: MORPHINE SULFATE 4 MG/ML SYR/VIAL IV PRN ×2 (16:00)
[2017-12-16] VITALS (98 sets, daily range): BP systolic 108–160; BP diastolic 57–98
[2017-12-16] MEDS: MEPERIDINE HCL (25 MG/ML) 1ML VIAL IV PRN ×2 (00:19→04:01)
[2017-12-16] MEDS: METOPROLOL TARTRATE 1MG/1ML-5ML VIAL IV PRN ×5 (02:35→22:43)
[2017-12-16] MEDS: MIDAZOLAM DRIP 50 mg/50mL 50 ML IV SCH ×3 (02:39→22:00)
[2017-12-16] MEDS: SODIUM CHLORIDE 0.9% 1,000 ML IV SCH ×3 (04:30→17:30)
[2017-12-16] MEDS: PROPOFOL 100 ML IV SCH ×4 (04:45→23:52)
[2017-12-16] MEDS: LORazepam 2MG/ML-1ML VIAL IV PRN (05:02)
[2017-12-16] MEDS: DOXYCYCLINE 100MG/250ML 250 ML IV SCH ×2 (05:02→17:03)
[2017-12-16] MEDS: SODIUM CHLOR 0.9% PF (SALINE LOCK) 10ML VIAL/SYR IV SCH ×2 (10:00→22:08)
[2017-12-16] MEDS: PANTOPRAZOLE 40 MG/10 ML VIAL IV SCH ×2 (10:41→22:08)
[2017-12-16] MEDS: SODIUM CHL 0.9% IV SCH ×2 (10:44→22:08)
[2017-12-16] MEDS: CEFEPIME HYDROCHLORIDE IV SCH ×2 (10:44→22:08)
[2017-12-16] MEDS: ENOXAPARIN SOD 40 MG/0.4 ML SYRINGE SC SCH (10:45)
[2017-12-16] MEDS: fentaNYL Drip 2500mCg/250mlNS 250 ML IV SCH (23:51)
[2017-12-17] VITALS (103 sets, daily range): BP systolic 82–157; BP diastolic 40–104
[2017-12-17] MEDS: SODIUM CHLORIDE 0.9% 1,000 ML IV SCH ×3 (01:30→15:44)
[2017-12-17] MEDS: METOPROLOL TARTRATE 1MG/1ML-5ML VIAL IV PRN ×4 (02:14→20:23)
[2017-12-17] MEDS: LORazepam 2MG/ML-1ML VIAL IV PRN ×2 (04:26→16:38)
[2017-12-17] MEDS: DOXYCYCLINE 100MG/250ML 250 ML IV SCH (04:45)
[2017-12-17 08:35] LABS: Basophils # (auto) 0 uL; Basophils % (auto) 0.2 % (0.0-2.0); Hemoglobin 12.1 g/dL (13.5-17.5); Red Cell Distribution Width 15.4 % (11.8-14.3)
[2017-12-17 08:37] LABS: Eosinophils # (auto) 0.1 uL; Eosinophils % (auto) 0.4 % (0.0-7.0); Lymphocytes # (auto) 0.9 uL; Lymphocytes % (auto) 6.1 % (10.0-50.0); Mean Corpuscular Hemoglobin 32.7 pg (28.0-32.0); Mean Corpuscular Hgb Conc. 34.6 g/dL (32.0-36.0); Mean Corpuscular Volume 94.7 fL (80.0-100.0); Monocytes # (auto) 1.3 uL; Monocytes % (auto) 8.5 % (0.0-12.0); Neutrophils # (auto) 13.1 uL; Neutrophils % (auto) 84.8 % (37.0-80.0); Nucleated Red Blood Cells % 0.2 %; Platelet Count (auto) 519 10^3/uL (140-450); White Blood Cell 15.5 10^3/uL (4.4-10.8)
[2017-12-17 08:45] LABS: Calcium 8.6 mg/dL (8.5-10.1); Potassium 4.5 mmol/L (3.5-5.1)
[2017-12-17 08:47] LABS: BUN/Creatinine Ratio 17.5
[2017-12-17] MEDS: MIDAZOLAM DRIP 50 mg/50mL 50 ML IV SCH ×3 (09:05→21:32)
[2017-12-17] MEDS: PANTOPRAZOLE 40 MG/10 ML VIAL IV SCH (10:00)
[2017-12-17] MEDS: ENOXAPARIN SOD 40 MG/0.4 ML SYRINGE SC SCH (10:00)
[2017-12-17] MEDS: CEFEPIME HYDROCHLORIDE IV SCH ×2 (10:00→21:18)
[2017-12-17] MEDS: SODIUM CHL 0.9% IV SCH ×2 (10:00→21:18)
[2017-12-17] MEDS: SODIUM CHLOR 0.9% PF (SALINE LOCK) 10ML VIAL/SYR IV SCH ×2 (10:00→21:37)
[2017-12-17] MEDS: fentaNYL Drip 2500mCg/250mlNS 250 ML IV SCH ×2 (11:00→23:00)
[2017-12-17] MEDS: PHENYLEPHRINE INJ 20 MG in SODIUM CHL 0.9% 250 ML IV SCH ×2 (15:18→22:32)
[2017-12-17 15:45] LABS: Hematocrit 31.5 % (41.0-53.0); Hemoglobin 11.1 g/dL (13.5-17.5)
[2017-12-17] MEDS: PANTOPRAZOLE 80 MG in SODIUM CHL 0.9% 60 ML IV SCH (18:30)
[2017-12-17] MEDS: PROPOFOL 100 ML IV SCH (20:23)
[2017-12-18] VITALS (94 sets, daily range): BP systolic 85–160; BP diastolic 40–96
[2017-12-18] MEDS: METOPROLOL TARTRATE 1MG/1ML-5ML VIAL IV PRN ×2 (01:38→05:34)
[2017-12-18] MEDS: MIDAZOLAM DRIP 50 mg/50mL 50 ML IV SCH ×5 (01:39→17:54)
[2017-12-18] MEDS: PANTOPRAZOLE 80 MG in SODIUM CHL 0.9% 60 ML IV SCH ×2 (01:39→09:03)
[2017-12-18] MEDS: PROPOFOL 100 ML IV SCH ×4 (02:24→21:07)
[2017-12-18 03:50] LABS: Eosinophils # (auto) 0.1 uL; Eosinophils % (auto) 0.6 % (0.0-7.0); Lymphocytes % (auto) 6.4 % (10.0-50.0); Monocytes # (auto) 1.3 uL
[2017-12-18 03:51] LABS: Basophils # (auto) 0.1 uL; Basophils % (auto) 0.4 % (0.0-2.0); Hematocrit 33.4 % (41.0-53.0); Hemoglobin 11.3 g/dL (13.5-17.5); Mean Corpuscular Hemoglobin 32.3 pg (28.0-32.0); Mean Corpuscular Hgb Conc. 33.8 g/dL (32.0-36.0); Mean Corpuscular Volume 95.5 fL (80.0-100.0); Monocytes % (auto) 8.7 % (0.0-12.0); Neutrophils # (auto) 12.6 uL; Neutrophils % (auto) 83.9 % (37.0-80.0); Platelet Count (auto) 472 10^3/uL (140-450); Red Cell Distribution Width 15.5 % (11.8-14.3)
[2017-12-18 04:42] LABS: BUN/Creatinine Ratio 23.7; Calcium 9.1 mg/dL (8.5-10.1); Potassium 4.3 mmol/L (3.5-5.1)
[2017-12-18] MEDS: PHENYLEPHRINE INJ 20 MG in SODIUM CHL 0.9% 250 ML IV SCH ×2 (04:55→13:30)
[2017-12-18] MEDS: SODIUM CHLORIDE 0.9% 1,000 ML IV SCH ×2 (06:00→20:06)
[2017-12-18] MEDS: MEPERIDINE HCL (25 MG/ML) 1ML VIAL IV PRN ×2 (07:49→17:51)
[2017-12-18] MEDS: LORazepam 2MG/ML-1ML VIAL IV PRN ×2 (07:49→17:50)
[2017-12-18] MEDS: fentaNYL Drip 2500mCg/250mlNS 250 ML IV SCH (09:05)
[2017-12-18] MEDS: SODIUM CHLOR 0.9% PF (SALINE LOCK) 10ML VIAL/SYR IV SCH ×2 (10:19→21:09)
[2017-12-18] MEDS: SODIUM CHL 0.9% IV SCH ×2 (10:19→21:08)
[2017-12-18] MEDS: CEFEPIME HYDROCHLORIDE IV SCH ×2 (10:19→21:08)
[2017-12-18] MEDS ORDERED: MORPHINE SULFATE 4 MG/ML SYR/VIAL IV PRN (11:30)
[2017-12-19] VITALS (105 sets, daily range): BP systolic 88–157; BP diastolic 42–93
[2017-12-19] MEDS: PANTOPRAZOLE 80 MG in SODIUM CHL 0.9% 60 ML IV SCH ×4 (00:07→20:30)
[2017-12-19] MEDS: MIDAZOLAM DRIP 50 mg/50mL 50 ML IV SCH ×6 (00:07→23:55)
[2017-12-19] MEDS: PHENYLEPHRINE INJ 20 MG in SODIUM CHL 0.9% 250 ML IV SCH ×3 (00:38→17:18)
[2017-12-19] MEDS: MEPERIDINE HCL (25 MG/ML) 1ML VIAL IV PRN ×3 (00:51→18:00)
[2017-12-19] MEDS: ACETAMINOPHEN 650 mg PER 20 mL UD GT PRN ×2 (00:55→18:01)
[2017-12-19] MEDS: fentaNYL Drip 2500mCg/250mlNS 250 ML IV SCH ×2 (01:59→14:00)
[2017-12-19 03:56] LABS: Eosinophils # (auto) 0.1 uL; Eosinophils % (auto) 0.6 % (0.0-7.0); Mean Corpuscular Hgb Conc. 34.2 g/dL (32.0-36.0); White Blood Cell 15.4 10^3/uL (4.4-10.8)
[2017-12-19 03:58] LABS: Basophils # (auto) 0 uL; Basophils % (auto) 0.3 % (0.0-2.0); Hematocrit 29.7 % (41.0-53.0); Hemoglobin 10.2 g/dL (13.5-17.5); Lymphocytes # (auto) 0.8 uL; Lymphocytes % (auto) 5.2 % (10.0-50.0); Mean Corpuscular Hemoglobin 32.4 pg (28.0-32.0); Mean Corpuscular Volume 94.7 fL (80.0-100.0); Monocytes # (auto) 1.1 uL; Monocytes % (auto) 6.9 % (0.0-12.0); Neutrophils # (auto) 13.4 uL; Platelet Count (auto) 453 10^3/uL (140-450); Red Blood Cells 3.14 10^6/uL (4.5-5.90); Red Cell Distribution Width 15.2 % (11.8-14.3)
[2017-12-19] MEDS: PROPOFOL 100 ML IV SCH ×4 (04:01→22:32)
[2017-12-19 04:08] LABS: Albumin 2.1 g/dL (3.4-5.0); Calcium 9.1 mg/dL (8.5-10.1); Potassium 3.5 mmol/L (3.5-5.1)
[2017-12-19 04:12] LABS: BUN/Creatinine Ratio 22.6; Bilirubin, Total 0.5 mg/dL (0.2-1.0)
[2017-12-19] MEDS: METOPROLOL TARTRATE 1MG/1ML-5ML VIAL IV PRN ×3 (07:59→22:07)
[2017-12-19] MEDS: SODIUM CHLORIDE 0.9% 1,000 ML IV SCH ×2 (08:29→22:09)
[2017-12-19] MEDS: SODIUM CHL 0.9% IV SCH ×2 (09:33→22:08)
[2017-12-19] MEDS: CEFEPIME HYDROCHLORIDE IV SCH ×2 (09:33→22:08)
[2017-12-19] MEDS: SODIUM CHLOR 0.9% PF (SALINE LOCK) 10ML VIAL/SYR IV SCH ×2 (09:35→22:08)
[2017-12-19 17:36] LABS: Band Neutrophils % (manual) 0; Basophils % (manual) 0 (0.0-2.0); Blast Cells 0; Metamyelocytes % 0; Myelocytes % 0; Promyelocytes % 0; Reactive Lymphocytes 0
[2017-12-19 17:44] LABS: Basophils # (auto) 0.1 uL; Basophils % (auto) 0.5 % (0.0-2.0); Eosinophils # (auto) 0.1 uL; Hematocrit 28.7 % (41.0-53.0); Hemoglobin 9.8 g/dL (13.5-17.5); Lymphocytes # (auto) 0.8 uL; Lymphocytes % (auto) 5.8 % (10.0-50.0); Mean Corpuscular Hemoglobin 32.3 pg (28.0-32.0); Mean Corpuscular Hgb Conc. 34.1 g/dL (32.0-36.0); Mean Corpuscular Volume 94.6 fL (80.0-100.0); Monocytes # (auto) 0.9 uL; Monocytes % (auto) 6.9 % (0.0-12.0); Neutrophils # (auto) 11.3 uL; Neutrophils % (auto) 85.8 % (37.0-80.0); Platelet Count (auto) 430 10^3/uL (140-450); Red Blood Cells 3.03 10^6/uL (4.5-5.90); Red Cell Distribution Width 15.3 % (11.8-14.3); White Blood Cell 13.1 10^3/uL (4.4-10.8)
[2017-12-19 18:02] LABS: Albumin 2.2 g/dL (3.4-5.0); Calcium 8.6 mg/dL (8.5-10.1); Magnesium 1.5 mg/dL (1.6-2.6); Potassium 3.3 mmol/L (3.5-5.1)
[2017-12-19 18:08] LABS: BUN/Creatinine Ratio 17.1; Bilirubin, Direct 0.2 mg/dL (0-0.2); Bilirubin, Total 0.4 mg/dL (0.2-1.0); Phosphorus 4.4 mg/dL (2.5-4.90); Total Protein 6.9 g/dL (6.4-8.2)
[2017-12-19 18:09] LABS: INR 1.08 (0.9-1.15); Partial Thromboplastin Time 32.2 sec (23.78-33.04); Prothrombin Time 11.5 sec (9.27-12.13)
[2017-12-19 18:20] LABS: Urine Bacteria FEW /hpf (None Seen); Urine Blood Negative /uL (Negative); Urine Mucus FEW (None Seen); Urine Specific Gravity 1.013 (1.001-1.035); Urine WBC 1 /hpf (0 - 3)
[2017-12-19] MEDS: MAGNESIUM SULFATE 1GM/100ML 100 ML IV SCH ×2 (19:38→20:44)
[2017-12-19] MEDS: POTASSIUM CHL 20MEQ/100ML 100 ML IV SCH ×2 (19:38→21:28)
[2017-12-19 20:33] LABS: Eosinophils % (manual) 3 (0-7); Lymphocytes % (manual) 6 (10.0-50.0); Monocytes % (manual) 8 (0-12)
[2017-12-20] VITALS (104 sets, daily range): BP systolic 81–188; BP diastolic 41–106
[2017-12-20] MEDS: MEPERIDINE HCL (25 MG/ML) 1ML VIAL IV PRN ×4 (00:10→19:12)
[2017-12-20 00:38] LABS: Urine Bacteria NONE SEEN /hpf (None Seen); Urine Blood Negative /uL (Negative); Urine Mucus FEW (None Seen); Urine Specific Gravity 1.013 (1.001-1.035); Urine WBC <1 /hpf (0 - 3)
[2017-12-20 00:40] LABS: Basophils # (auto) 0 uL; Basophils % (auto) 0.3 % (0.0-2.0); Eosinophils # (auto) 0.1 uL; Hematocrit 27.7 % (41.0-53.0); Hemoglobin 9.6 g/dL (13.5-17.5); Lymphocytes # (auto) 0.9 uL; Lymphocytes % (auto) 8.5 % (10.0-50.0); Mean Corpuscular Hemoglobin 32.6 pg (28.0-32.0); Mean Corpuscular Hgb Conc. 34.5 g/dL (32.0-36.0); Mean Corpuscular Volume 94.5 fL (80.0-100.0); Monocytes # (auto) 0.9 uL; Monocytes % (auto) 8.4 % (0.0-12.0); Neutrophils # (auto) 8.5 uL; Neutrophils % (auto) 81.8 % (37.0-80.0); Platelet Count (auto) 413 10^3/uL (140-450); Red Blood Cells 2.93 10^6/uL (4.5-5.90); Red Cell Distribution Width 15.2 % (11.8-14.3); White Blood Cell 10.5 10^3/uL (4.4-10.8)
[2017-12-20 00:47] LABS: INR 1.07 (0.9-1.15); Partial Thromboplastin Time 29.4 sec (23.78-33.04); Prothrombin Time 11.4 sec (9.27-12.13)
[2017-12-20 00:55] LABS: Albumin 2.1 g/dL (3.4-5.0); Bilirubin, Direct 0.1 mg/dL (0-0.2); Calcium 8.7 mg/dL (8.5-10.1); Magnesium 1.9 mg/dL (1.6-2.6); Phosphorus 3.9 mg/dL (2.5-4.90)
[2017-12-20 01:04] LABS: Potassium 3.5 mmol/L (3.5-5.1); Total Protein 6.9 g/dL (6.4-8.2)
[2017-12-20 01:16] LABS: BUN/Creatinine Ratio 14.3; Bilirubin, Total 0.4 mg/dL (0.2-1.0)
[2017-12-20] MEDS: PHENYLEPHRINE INJ 20 MG in SODIUM CHL 0.9% 250 ML IV SCH ×3 (01:38→18:18)
[2017-12-20 02:25] LABS: Band Neutrophils % (manual) 0; Basophils % (manual) 0 (0.0-2.0); Blast Cells 0; Metamyelocytes % 0; Myelocytes % 0; Promyelocytes % 0; Reactive Lymphocytes 0
[2017-12-20 02:34] LABS: Eosinophils % (manual) 1 (0-7); Lymphocytes % (manual) 9 (10.0-50.0); Monocytes % (manual) 6 (0-12)
[2017-12-20] MEDS: METOPROLOL TARTRATE 1MG/1ML-5ML VIAL IV PRN ×3 (02:35→13:41)
[2017-12-20] MEDS: PROPOFOL 100 ML IV SCH ×5 (03:03→23:18)
[2017-12-20] MEDS: MIDAZOLAM DRIP 50 mg/50mL 50 ML IV SCH ×4 (03:03→20:33)
[2017-12-20] MEDS: fentaNYL Drip 2500mCg/250mlNS 250 ML IV SCH (03:07)
[2017-12-20] MEDS: ACETAMINOPHEN 650 mg PER 20 mL UD GT PRN (03:55)
[2017-12-20 06:24] LABS: Urine Bacteria NONE SEEN /hpf (None Seen); Urine Blood Negative /uL (Negative); Urine Mucus FEW (None Seen); Urine Specific Gravity 1.009 (1.001-1.035); Urine WBC <1 /hpf (0 - 3)
[2017-12-20 06:32] LABS: Basophils # (auto) 0.1 uL; Basophils % (auto) 0.4 % (0.0-2.0); Eosinophils # (auto) 0.1 uL; Eosinophils % (auto) 0.7 % (0.0-7.0); Hematocrit 28.7 % (41.0-53.0); Hemoglobin 9.8 g/dL (13.5-17.5); Lymphocytes # (auto) 0.7 uL; Lymphocytes % (auto) 5.4 % (10.0-50.0); Mean Corpuscular Hemoglobin 32.1 pg (28.0-32.0); Mean Corpuscular Volume 94.2 fL (80.0-100.0); Monocytes # (auto) 0.9 uL; Monocytes % (auto) 7.5 % (0.0-12.0); Neutrophils # (auto) 10.9 uL; Platelet Count (auto) 419 10^3/uL (140-450); Red Blood Cells 3.05 10^6/uL (4.5-5.90); Red Cell Distribution Width 14.9 % (11.8-14.3); White Blood Cell 12.6 10^3/uL (4.4-10.8)
[2017-12-20 06:45] LABS: INR 1.09 (0.9-1.15); Partial Thromboplastin Time 32.8 sec (23.78-33.04); Prothrombin Time 11.6 sec (9.27-12.13)
[2017-12-20] MEDS: PANTOPRAZOLE 80 MG in SODIUM CHL 0.9% 60 ML IV SCH ×2 (06:53→22:02)
[2017-12-20 06:57] LABS: Potassium 3.5 mmol/L (3.5-5.1)
[2017-12-20 07:07] LABS: Albumin 2.3 g/dL (3.4-5.0); BUN/Creatinine Ratio 14.3; Bilirubin, Direct 0.1 mg/dL (0-0.2); Bilirubin, Total 0.4 mg/dL (0.2-1.0); Calcium 8.9 mg/dL (8.5-10.1); Magnesium 1.6 mg/dL (1.6-2.6); Phosphorus 4.4 mg/dL (2.5-4.90); Total Protein 7.2 g/dL (6.4-8.2)
[2017-12-20] MEDS: SODIUM CHLOR 0.9% PF (SALINE LOCK) 10ML VIAL/SYR IV SCH ×2 (10:24→22:01)
[2017-12-20] MEDS: CEFEPIME HYDROCHLORIDE IV SCH ×2 (10:25→22:01)
[2017-12-20] MEDS: SODIUM CHL 0.9% IV SCH ×2 (10:25→22:01)
[2017-12-20 11:59] LABS: Basophils % (manual) 0 (0.0-2.0); Blast Cells 0; Eosinophils % (manual) 0 (0-7); Metamyelocytes % 0; Myelocytes % 0; Promyelocytes % 0; Reactive Lymphocytes 0
[2017-12-20] MEDS: SODIUM CHLORIDE 0.9% 1,000 ML IV SCH (12:05)
[2017-12-20 12:22] LABS: Eosinophils # (auto) 0 uL; Mean Corpuscular Hemoglobin 32.1 pg (28.0-32.0); Mean Corpuscular Hgb Conc. 33.8 g/dL (32.0-36.0)
[2017-12-20 12:24] LABS: Basophils # (auto) 0 uL; Basophils % (auto) 0.2 % (0.0-2.0); Eosinophils % (auto) 0.2 % (0.0-7.0); Hematocrit 29.8 % (41.0-53.0); Hemoglobin 10.1 g/dL (13.5-17.5); Lymphocytes # (auto) 0.7 uL; Lymphocytes % (auto) 3.3 % (10.0-50.0); Monocytes % (auto) 5.2 % (0.0-12.0); Neutrophils # (auto) 18.1 uL; Neutrophils % (auto) 91.1 % (37.0-80.0); Platelet Count (auto) 472 10^3/uL (140-450); Red Blood Cells 3.14 10^6/uL (4.5-5.90); Red Cell Distribution Width 14.8 % (11.8-14.3); White Blood Cell 19.9 10^3/uL (4.4-10.8)
[2017-12-20 12:37] LABS: INR 1.11 (0.9-1.15); Partial Thromboplastin Time 34.2 sec (23.78-33.04); Prothrombin Time 11.8 sec (9.27-12.13)
[2017-12-20 12:43] LABS: Albumin 2.2 g/dL (3.4-5.0); BUN/Creatinine Ratio 10.7; Bilirubin, Direct 0.1 mg/dL (0-0.2); Magnesium 1.5 mg/dL (1.6-2.6); Potassium 3.8 mmol/L (3.5-5.1)
[2017-12-20 12:47] LABS: Bilirubin, Total 0.5 mg/dL (0.2-1.0); Phosphorus 4.3 mg/dL (2.5-4.90); Total Protein 7.4 g/dL (6.4-8.2)
[2017-12-20 12:52] LABS: Band Neutrophils % (manual) 1; Lymphocytes % (manual) 5 (10.0-50.0); Monocytes % (manual) 5 (0-12)
[2017-12-20] MEDS: MAGNESIUM SULFATE 1GM/100ML 100 ML IV SCH ×3 (16:27→20:10)
[2017-12-20 16:50] LABS: Urine Bacteria NONE SEEN /hpf (None Seen); Urine Blood Negative /uL (Negative); Urine Specific Gravity 1.014 (1.001-1.035); Urine WBC <1 /hpf (0 - 3)
[2017-12-20 18:12] LABS: Basophils % (manual) 0 (0.0-2.0); Blast Cells 0; Eosinophils % (manual) 0 (0-7); Metamyelocytes % 0; Myelocytes % 0; Promyelocytes % 0
[2017-12-20 18:30] LABS: Basophils # (auto) 0.1 uL; Basophils % (auto) 0.4 % (0.0-2.0); Eosinophils # (auto) 0 uL; Eosinophils % (auto) 0.3 % (0.0-7.0); Hematocrit 27.8 % (41.0-53.0); Hemoglobin 9.4 g/dL (13.5-17.5); Lymphocytes # (auto) 0.7 uL; Lymphocytes % (auto) 4.7 % (10.0-50.0); Mean Corpuscular Hemoglobin 31.8 pg (28.0-32.0); Mean Corpuscular Hgb Conc. 33.8 g/dL (32.0-36.0); Mean Corpuscular Volume 94.2 fL (80.0-100.0); Monocytes # (auto) 1.1 uL; Monocytes % (auto) 6.7 % (0.0-12.0); Neutrophils # (auto) 13.9 uL; Neutrophils % (auto) 87.9 % (37.0-80.0); Platelet Count (auto) 451 10^3/uL (140-450); Red Blood Cells 2.95 10^6/uL (4.5-5.90); Red Cell Distribution Width 14.8 % (11.8-14.3); White Blood Cell 15.8 10^3/uL (4.4-10.8)
[2017-12-20 18:39] LABS: INR 1.06 (0.9-1.15); Partial Thromboplastin Time 35.1 sec (23.78-33.04); Prothrombin Time 11.3 sec (9.27-12.13)
[2017-12-20 18:59] LABS: BUN/Creatinine Ratio 15.6; Potassium 3.8 mmol/L (3.5-5.1)
[2017-12-20 19:00] LABS: Bilirubin, Direct 0.2 mg/dL (0-0.2); Bilirubin, Total 0.5 mg/dL (0.2-1.0); Phosphorus 4.5 mg/dL (2.5-4.90); Total Protein 6.9 g/dL (6.4-8.2)
[2017-12-20 19:01] LABS: Albumin 2.1 g/dL (3.4-5.0); Magnesium 1.5 mg/dL (1.6-2.6)
[2017-12-20 19:29] LABS: Urine Bacteria NONE SEEN /hpf (None Seen); Urine Blood Negative /uL (Negative); Urine Specific Gravity 1.019 (1.001-1.035); Urine WBC <1 /hpf (0 - 3)
[2017-12-20 21:19] LABS: Band Neutrophils % (manual) 12; Lymphocytes % (manual) 4 (10.0-50.0); Monocytes % (manual) 5 (0-12); Reactive Lymphocytes 1
[2017-12-21] VITALS (72 sets, daily range): BP systolic 68–292; BP diastolic 40–95
[2017-12-21] MEDS ORDERED: PHENYLEPHRINE IV 250 ML IV ONE (01:18)
[2017-12-21] MEDS: PHENYLEPHRINE INJ 20 MG in SODIUM CHL 0.9% 250 ML IV SCH ×2 (01:24→10:58)
[2017-12-21] MEDS: ACETAMINOPHEN 650 mg PER 20 mL UD GT PRN ×2 (01:24→09:17)
[2017-12-21] MEDS: SODIUM CHLORIDE 0.9% 1,000 ML IV SCH (01:33)
[2017-12-21] MEDS: MIDAZOLAM DRIP 50 mg/50mL 50 ML IV SCH ×4 (01:34→14:02)
[2017-12-21 01:46] LABS: Band Neutrophils % (manual) 0; Basophils % (manual) 0 (0.0-2.0); Blast Cells 0; Metamyelocytes % 0; Myelocytes % 0; Promyelocytes % 0; Reactive Lymphocytes 0
[2017-12-21 01:57] LABS: Basophils # (auto) 0 uL; Basophils % (auto) 0.2 % (0.0-2.0); Eosinophils # (auto) 0.1 uL; Eosinophils % (auto) 0.8 % (0.0-7.0); Hematocrit 26.8 % (41.0-53.0); Hemoglobin 9.1 g/dL (13.5-17.5); Lymphocytes # (auto) 0.8 uL; Lymphocytes % (auto) 6.1 % (10.0-50.0); Mean Corpuscular Hemoglobin 31.9 pg (28.0-32.0); Mean Corpuscular Hgb Conc. 34.1 g/dL (32.0-36.0); Mean Corpuscular Volume 93.6 fL (80.0-100.0); Monocytes # (auto) 0.8 uL; Monocytes % (auto) 6.2 % (0.0-12.0); Neutrophils # (auto) 11.4 uL; Neutrophils % (auto) 86.7 % (37.0-80.0); Platelet Count (auto) 426 10^3/uL (140-450); Red Blood Cells 2.87 10^6/uL (4.5-5.90); Red Cell Distribution Width 14.6 % (11.8-14.3); White Blood Cell 13.1 10^3/uL (4.4-10.8)
[2017-12-21 02:11] LABS: Albumin 2.1 g/dL (3.4-5.0); Calcium 8.6 mg/dL (8.5-10.1); Magnesium 1.8 mg/dL (1.6-2.6); Potassium 3.1 mmol/L (3.5-5.1)
[2017-12-21 02:15] LABS: BUN/Creatinine Ratio 13.6; Bilirubin, Direct 0.1 mg/dL (0-0.2); Bilirubin, Total 0.4 mg/dL (0.2-1.0); Phosphorus 4.2 mg/dL (2.5-4.90); Total Protein 6.9 g/dL (6.4-8.2)
[2017-12-21 02:19] LABS: Eosinophils % (manual) 1 (0-7); Lymphocytes % (manual) 5 (10.0-50.0); Monocytes % (manual) 5 (0-12)
[2017-12-21 02:28] LABS: INR 1.07 (0.9-1.15); Partial Thromboplastin Time 34.3 sec (23.78-33.04); Prothrombin Time 11.4 sec (9.27-12.13)
[2017-12-21 02:29] LABS: Urine Bacteria NONE SEEN /hpf (None Seen); Urine Blood Negative /uL (Negative); Urine Mucus FEW (None Seen); Urine Specific Gravity 1.019 (1.001-1.035); Urine WBC <1 /hpf (0 - 3)
[2017-12-21] MEDS ORDERED: MAGNESIUM SULFATE 1GM/100ML 100 ML IV ONE ×2 (02:30→02:34)
[2017-12-21] MEDS ORDERED: POTASSIUM CHL 20MEQ/100ML 200 ML IV ONE (02:35)
[2017-12-21] MEDS: POTASSIUM CHL 20MEQ/100ML 100 ML IV SCH ×2 (02:40→04:31)
[2017-12-21] MEDS: fentaNYL Drip 2500mCg/250mlNS 250 ML IV SCH (04:32)
[2017-12-21] MEDS: MEPERIDINE HCL (25 MG/ML) 1ML VIAL IV PRN (04:47)
[2017-12-21] MEDS: PROPOFOL 100 ML IV SCH ×2 (05:00→08:35)
[2017-12-21 07:32] LABS: Basophils % (manual) 0 (0.0-2.0); Blast Cells 0; Metamyelocytes % 0; Monocytes % (manual) 0 (0-12); Myelocytes % 0; Promyelocytes % 0; Reactive Lymphocytes 0
[2017-12-21 07:41] LABS: Basophils # (auto) 0 uL; Basophils % (auto) 0.3 % (0.0-2.0); Eosinophils # (auto) 0.1 uL; Eosinophils % (auto) 0.5 % (0.0-7.0); Hematocrit 25.3 % (41.0-53.0); Hemoglobin 8.6 g/dL (13.5-17.5); Lymphocytes # (auto) 0.5 uL; Lymphocytes % (auto) 3.5 % (10.0-50.0); Mean Corpuscular Hgb Conc. 34.1 g/dL (32.0-36.0); Mean Corpuscular Volume 93.7 fL (80.0-100.0); Monocytes # (auto) 0.7 uL; Monocytes % (auto) 5.2 % (0.0-12.0); Neutrophils # (auto) 12.9 uL; Neutrophils % (auto) 90.5 % (37.0-80.0); Platelet Count (auto) 380 10^3/uL (140-450); Red Blood Cells 2.69 10^6/uL (4.5-5.90); Red Cell Distribution Width 14.8 % (11.8-14.3); White Blood Cell 14.3 10^3/uL (4.4-10.8)
[2017-12-21 07:47] LABS: Urine Bacteria NONE SEEN /hpf (None Seen); Urine Blood Negative /uL (Negative); Urine Mucus FEW (None Seen); Urine Specific Gravity 1.017 (1.001-1.035); Urine WBC 1 /hpf (0 - 3)
[2017-12-21 07:55] LABS: INR 1.1 (0.9-1.15); Prothrombin Time 11.7 sec (9.27-12.13)
[2017-12-21 07:58] LABS: Band Neutrophils % (manual) 1; Eosinophils % (manual) 1 (0-7); Lymphocytes % (manual) 3 (10.0-50.0)
[2017-12-21 07:59] LABS: Potassium 3.8 mmol/L (3.5-5.1)
[2017-12-21 08:14] LABS: BUN/Creatinine Ratio 7.1; Bilirubin, Direct 0.2 mg/dL (0-0.2); Bilirubin, Total 0.5 mg/dL (0.2-1.0); Calcium 8.6 mg/dL (8.5-10.1); Magnesium 1.8 mg/dL (1.6-2.6); Total Protein 6.7 g/dL (6.4-8.2)
[2017-12-21] MEDS: PANTOPRAZOLE 80 MG in SODIUM CHL 0.9% 60 ML IV SCH (08:39)
[2017-12-21] MEDS: METOPROLOL TARTRATE 1MG/1ML-5ML VIAL IV PRN ×2 (09:17→13:15)
[2017-12-21] MEDS: CEFEPIME HYDROCHLORIDE IV SCH (09:19)
[2017-12-21] MEDS: SODIUM CHL 0.9% IV SCH (09:19)
[2017-12-21] MEDS: SODIUM CHLOR 0.9% PF (SALINE LOCK) 10ML VIAL/SYR IV SCH (09:44)
[2017-12-21] MEDS ORDERED: MORPHINE SULFATE 4 MG/ML SYR/VIAL IV PRN (10:00)
[2017-12-21] MEDS ORDERED: LORazepam 2MG/ML-1ML VIAL IV PRN (10:00)
[2017-12-21 10:53] LABS: Basophils % (manual) 0 (0.0-2.0); Blast Cells 0; Eosinophils % (manual) 0 (0-7); Metamyelocytes % 0; Myelocytes % 0; Promyelocytes % 0; Reactive Lymphocytes 0
[2017-12-21 11:01] LABS: Hematocrit 24.3 % (41.0-53.0); Hemoglobin 8.5 g/dL (13.5-17.5); Mean Corpuscular Hemoglobin 32.6 pg (28.0-32.0); Mean Corpuscular Hgb Conc. 34.8 g/dL (32.0-36.0); Mean Corpuscular Volume 93.7 fL (80.0-100.0); Platelet Count (auto) 363 10^3/uL (140-450); Red Blood Cells 2.59 10^6/uL (4.5-5.90); White Blood Cell 14.3 10^3/uL (4.4-10.8)
[2017-12-21 11:04] LABS: Urine Bacteria NONE SEEN /hpf (None Seen); Urine Blood Negative /uL (Negative); Urine Hyaline Cast FEW /lpf (0 - 2); Urine Mucus FEW (None Seen); Urine Specific Gravity 1.018 (1.001-1.035); Urine WBC 1 /hpf (0 - 3)
[2017-12-21 11:18] LABS: INR 1.14 (0.9-1.15); Partial Thromboplastin Time 32.7 sec (23.78-33.04); Prothrombin Time 12.1 sec (9.27-12.13)
[2017-12-21 11:20] LABS: Magnesium 1.5 mg/dL (1.6-2.6); Potassium 3.2 mmol/L (3.5-5.1)
[2017-12-21 11:26] LABS: BUN/Creatinine Ratio 7.4; Bilirubin, Direct 0.2 mg/dL (0-0.2); Bilirubin, Total 0.5 mg/dL (0.2-1.0); Calcium 8.3 mg/dL (8.5-10.1); Phosphorus 3.3 mg/dL (2.5-4.90); Total Protein 6.5 g/dL (6.4-8.2)
[2017-12-21 11:34] LABS: Band Neutrophils % (manual) 1; Lymphocytes % (manual) 1 (10.0-50.0); Monocytes % (manual) 4 (0-12)
[2017-12-21] MEDS ORDERED: POTASSIUM CHL 20MEQ/100ML 100 ML IV SCH (12:30)
[2017-12-21] MEDS ORDERED: HEPARIN 1,000 UNITS/ml 1ML VIAL IV ONE (12:30)
[2017-12-21] MEDS ORDERED: MORPHINE SULFATE 4 MG/ML SYR/VIAL ONE ×2 (14:28→14:35)
[2017-12-21] MEDS ORDERED: LORazepam 2MG/ML-1ML VIAL ONE ×2 (14:28→14:36)
[2017-12-21] MEDS ORDERED: MEPERIDINE HCL (50 MG/ML) 1 ML VIAL ONE (14:28)
[2017-12-21] MEDS ORDERED: MEPERIDINE HCL (50 MG/ML) 1 ML VIAL IV ONE (14:30)
[2017-12-21] MEDS ORDERED: HEPARIN SODIUM (PORCINE) 5000 UNITS/ML 1ML VIAL IV ONE (15:00)
[2017-12-21] MEDS ORDERED: HEPARIN SODIUM (PORCINE) 1000 UNITS/ML 30ML VIAL IV ONE (15:00)
[2017-12-21] MEDS: LORazepam 2MG/ML-1ML VIAL IV PRN ×2 (15:25→15:45)
[2017-12-21] MEDS: MORPHINE SULFATE 4 MG/ML SYR/VIAL IV PRN ×2 (15:25→15:45)
== END 2017-12-21 19:02 | disposition expired | DRG 917 ==
LOC: ER 22:49 → ICU WEST 22:50
PROVIDERS: ADMIT Nurse Practitioner; ATTEND Internal Medicine
PROC: 5A1955Z Respiratory Ventilation, Greater than 96 Consecutive Hours (ICD-10-PCS; principal; 2017-12-01)
PROC: 0BH17EZ Insertion of Endotracheal Airway into Trachea, Via Natural or Artificial Opening (ICD-10-PCS; 2017-12-01)
PROC: 5A12012 Performance of Cardiac Output, Single, Manual (ICD-10-PCS; 2017-12-01)
PROC: 02HV33Z Insertion of Infusion Device into Superior Vena Cava, Percutaneous Approach (ICD-10-PCS; 2017-12-05)
PROC: 02HV33Z Insertion of Infusion Device into Superior Vena Cava, Percutaneous Approach (ICD-10-PCS; 2017-12-19)
DX: T42.3X1A Poisoning by barbiturates, accidental (unintentional), initial encounter (principal); I21.4 Non-ST elevation (NSTEMI) myocardial infarction; N17.0 Acute kidney failure with tubular necrosis; J69.0 Pneumonitis due to inhalation of food and vomit; G93.6 Cerebral edema; J96.01 Acute respiratory failure with hypoxia; E87.2 Acidosis; G93.1 Anoxic brain damage, not elsewhere classified; K92.0 Hematemesis; F11.20 Opioid dependence, uncomplicated; J91.8 Pleural effusion in other conditions classified elsewhere; I46.9 Cardiac arrest, cause unspecified; E87.6 Hypokalemia; F32.9 Major depressive disorder, single episode, unspecified; F41.9 Anxiety disorder, unspecified; M54.5 Low back pain; T40.7X1A Poisoning by cannabis (derivatives), accidental (unintentional), initial encounter; E11.65 Type 2 diabetes mellitus with hyperglycemia; E11.22 Type 2 diabetes mellitus with diabetic chronic kidney disease; G40.901 Epilepsy, unspecified, not intractable, with status epilepticus; F12.90 Cannabis use, unspecified, uncomplicated; E78.5 Hyperlipidemia, unspecified; E86.0 Dehydration; F17.200 Nicotine dependence, unspecified, uncomplicated; F19.10 Other psychoactive substance abuse, uncomplicated; I49.9 Cardiac arrhythmia, unspecified; F41.0 Panic disorder [episodic paroxysmal anxiety]; G89.4 Chronic pain syndrome; I12.9 Hypertensive chronic kidney disease with stage 1 through stage 4 chronic kidney disease, or unspecified chronic kidney disease; Z51.5 Encounter for palliative care; K72.90 Hepatic failure, unspecified without coma; N18.9 Chronic kidney disease, unspecified; Q05.9 Spina bifida, unspecified; Z81.8 Family history of other mental and behavioral disorders; Z82.0 Family history of epilepsy and other diseases of the nervous system; Z83.3 Family history of diabetes mellitus; Z87.01 Personal history of pneumonia (recurrent); Y92.89 Other specified places as the place of occurrence of the external cause
CPT/HCPCS: 31500; 36415; 36569; 36600; 51702; 70450; 71045; 72125; 76700; 80048; 80053; 80076; 80202; 80307; 80320; 80329; 81001; 82140; 82150; 82248; 82270; 82805; 82962; 83605; 83690; 83735; 84100; 84132; 84146; 84484; 85007; 85014; 85018; 85025; 85027; 85610; 85730; 86703; 86850; 86900; 86901; 87040; 87070; 87077; 87081; 87086; 87186; 87205; 87493; 93005; 93306; 93971; 94002; 94003; 95819; 96361; 96365; 96375; A6257; C9113; G0378; J1644; J2250; J2704; J3480; J3490; J7060